=== PATIENT | female | born 1990 | race Hispanic/Latino ===

== ENCOUNTER 2018-05-21 23:39 | Emergency (ER) | payer OTHER ==
[2018-05-21] MEDS ORDERED: ACETAMINOPHEN 325 MG TAB ONE (23:59)
== END 2018-05-22 03:02 | disposition home or self-care (01) ==
LOC: EDH 23:39
DX: S16.1XXA Strain of muscle, fascia and tendon at neck level, initial encounter (principal); S20.219A Contusion of unspecified front wall of thorax, initial encounter; R51 Headache; V49.59XA Passenger injured in collision with other motor vehicles in traffic accident, initial encounter; Y93.89 Activity, other specified; Y92.410 Unspecified street and highway as the place of occurrence of the external cause; Y99.8 Other external cause status
CPT/HCPCS: 71045; 72125; 72170; 81025